=== PATIENT | female | born 1945 | race African-American/Black ===

== ENCOUNTER 2023-05-09 20:18 | Inpatient (IN) | payer MEDICARE ==
[~2023-05-09] VITALS: Ht 152.4 cm; Wt 77.1 kg
[2023-05-09] MEDS ORDERED: ONDANSETRON HCL/PF 4 MG/2 ML VIAL ONE (20:46)
[2023-05-09] MEDS ORDERED: ONDANSETRON HCL/PF 4 MG/2 ML VIAL IVP ONE (21:00)
[2023-05-09] MEDS ORDERED: IV NS 0.9% 1,000 ML BAG IV ONE (21:00)
[2023-05-09 21:19] LABS: BASOPHILS % (AUTO) 0.2 % (0.0-2.0); EOSINOPHILS # (AUTO) 0.1 K/uL (0.0-0.7); EOSINOPHILS % (AUTO) 1.2 % (0.0-6.0); HEMATOCRIT 35 % (33-45); HEMOGLOBIN 10.8 g/dL (11.5-14.8); LYMPHOCYTES # (AUTO) 0.5 K/uL (0.8-4.8); LYMPHOCYTES % (AUTO) 9.1 % (20.0-44.0); MEAN CORPUSCULAR HEMOGLOBIN 20 PG (26.0-33.0); MEAN CORPUSCULAR HGB CONC 31 g/dl (31.0-36.0); MEAN CORPUSCULAR VOLUME 65 fL (82-100); MONOCYTES # (AUTO) 0.2 K/uL (0.1-1.30); MONOCYTES % (AUTO) 2.8 % (2.0-12.0); NEUTROPHILS # (AUTO) 4.8 K/uL (1.8-8.9); NEUTROPHILS % (AUTO) 86.7 % (43.0-81.0); PLATELET COUNT (AUTO) 142 K/uL (150-450); RED BLOOD CELL COUNT(AUTO) 5.39 MIL/uL (4.0-5.2); RED CELL DISTRIBUTION WIDTH 15.9 % (11.5-15.0); WHITE BLOOD COUNT (AUTO) 5.5 K/uL (4.3-11.0)
[2023-05-09 21:28] LABS: CALCIUM, SERUM 9.6 mg/dL (8.5-10.1); CARBON DIOXIDE 22 mmol/L (21-32); CHLORIDE 101 mmol/L (98-107); CREATININE 1.2 mg/dL (0.6-1.3); GLUCOSE 99 mg/dL (74-106); POTASSIUM 3.4 mmol/L (3.5-5.1); SODIUM SERUM 135 mmol/L (136-145); UREA NITROGEN, BLOOD 19 mg/dL (7-18)
[2023-05-09 21:34] LABS: ALANINE AMINOTRANSFERASE 27 U/L (12-78); ALBUMIN 3.3 g/dL (3.4-5.0); ALKALINE PHOSPHATASE 61 U/L (46-116); ASPARTATE AMINOTRANSFERASE 22 U/L (15-37); BILIRUBIN,DIRECT 0.3 mg/dL (0.0-0.2); BILIRUBIN,TOTAL 0.6 mg/dL (0.2-1.0); TOTAL PROTEIN, SERUM 7.8 g/dL (6.4-8.2)
[2023-05-09 22:29] LABS: ANISOCYTOSIS 1+; BASOPHILS % (MANUAL) 0 % (0.0-2.0); EOSINOPHILS % (MANUAL) 0 % (0-4); LYMPHOCYTES % (MANUAL) 11 % (16-48); MONOCYTES % (MANUAL) 4 % (0-11.0); NEUTROPHILS % (MANUAL) 85 (42-76); PLATELET ESTIMATE ADEQUATE
[2023-05-09] MEDS ORDERED: ONDANSETRON HCL/PF 4 MG/2 ML VIAL IVP PRN (22:30)
[2023-05-09] MEDS ORDERED: Z GUARD REMEDY 4 OZ OINT TP PRN (22:30)
[2023-05-09] MEDS: POTASSIUM CL. PREMIX PERIPHER. 50 ML IV SCH ×2 (22:30→23:30)
[2023-05-09] MEDS ORDERED: MAGNESIUM HYDROXIDE 30 ML UDC PO PRN (22:30)
[2023-05-09] MEDS ORDERED: TEMAZEPAM 15 MG CAPSULE PO PRN (22:30)
[2023-05-09] MEDS ORDERED: MAG HYDROX/AL HYDROX/SIMETH 30 ML UDC PO PRN (22:30)
[2023-05-09 22:47] LABS: APPEARANCE,URINE CLOUDY (CLEAR); BILIRUBIN,URINE NEGATIVE (NEGATIVE); BLOOD, URINE 1+ Ery/uL (NEGATIVE); COLOR,URINE DARK YELLOW (YELLOW); KETONES,URINE 1+ mg/dL (NEGATIVE); LEUKOCYTE ESTERASE ,URINE 2+ (NEGATIVE); NITRITE, URINE POSITIVE (NEGATIVE); PROTEIN,URINE 2+ mg/dl (NEGATIVE); UGLUCOSE NEGATIVE (NEGATIVE)
[2023-05-09 22:52] LABS: ADD URINE CULTURE YES; BACTERIA,URINE Moderate /HPF (None Seen); SQUAMOUS EPITHELIAL CELL,UR Rare /HPF (None Seen); WBC,URINE 21-50 /HPF (0-3)
[2023-05-09] MEDS ORDERED: POTASSIUM CL. PREMIX PERIPHER. 100 ML ONE (22:52)
[2023-05-09] MEDS ORDERED: CEFTRIAXONE 1 G in IV D5W 50 ML IV SCH (23:30)
[2023-05-09] MEDS ORDERED: CEFEPIME 1 GM VIAL ONE (23:33)
[2023-05-09] MEDS: CEFEPIME 1 GM in IV D5W 50 ML IV SCH (23:45)
[2023-05-10] MEDS ORDERED: ACETAMINOPHEN 325 MG TABLET ONE (06:41)
[2023-05-10] MEDS: ACETAMINOPHEN 325 MG TABLET PO PRN ×3 (06:45→15:51)
[2023-05-10] MEDS ORDERED: IRBE150T28 PO (07:43)
[2023-05-10] MEDS ORDERED: LOSA100T31 PO (07:43)
[2023-05-10] MEDS ORDERED: FLUT1BLS IH (07:43)
[2023-05-10] MEDS ORDERED: AMLO10TA4 PO (07:43)
[2023-05-10] MEDS ORDERED: ACET-868 PO (07:43)
[2023-05-10] MEDS ORDERED: ATOR10TA PO (07:43)
[2023-05-10 09:00] VITALS: BP 104/63; TEMP 100.2; O2SAT 95
[2023-05-10] MEDS ORDERED: PANTOPRAZOLE 40 MG VIAL IV SCH (09:00)
[2023-05-10] MEDS: CEFEPIME 1 GM in IV D5W 50 ML IV SCH ×2 (09:07→21:12)
[2023-05-10 09:42] LABS: BASOPHILS % (AUTO) 0.1 % (0.0-2.0); EOSINOPHILS % (AUTO) 0.1 % (0.0-6.0); HEMATOCRIT 30 % (33-45); HEMOGLOBIN 9.3 g/dL (11.5-14.8); LYMPHOCYTES # (AUTO) 1.1 K/uL (0.8-4.8); LYMPHOCYTES % (AUTO) 9.8 % (20.0-44.0); MEAN CORPUSCULAR HEMOGLOBIN 20 PG (26.0-33.0); MEAN CORPUSCULAR HGB CONC 31 g/dl (31.0-36.0); MEAN CORPUSCULAR VOLUME 66 fL (82-100); MONOCYTES # (AUTO) 1.3 K/uL (0.1-1.30); MONOCYTES % (AUTO) 11.6 % (2.0-12.0); NEUTROPHILS # (AUTO) 9.1 K/uL (1.8-8.9); NEUTROPHILS % (AUTO) 78.4 % (43.0-81.0); PLATELET COUNT (AUTO) 128 K/uL (150-450); RED CELL DISTRIBUTION WIDTH 15.8 % (11.5-15.0); WHITE BLOOD COUNT (AUTO) 11.7 K/uL (4.3-11.0)
[2023-05-10 10:07] LABS: CALCIUM, SERUM 9.1 mg/dL (8.5-10.1); CARBON DIOXIDE 21 mmol/L (21-32); CHLORIDE 104 mmol/L (98-107); CREATININE 1.1 mg/dL (0.6-1.3); GLUCOSE 100 mg/dL (74-106); PHOSPHORUS 3.2 mg/dL (2.5-4.9); POTASSIUM 3.8 mmol/L (3.5-5.1); SODIUM SERUM 137 mmol/L (136-145); UREA NITROGEN, BLOOD 17 mg/dL (7-18)
[2023-05-10 10:18] LABS: CHOLESTEROL 100 mg/dL (<200); HDL CHOLESTEROL 41 mg/dL (40-60); LDL 39 mg/dL (0-99); THYROID STIMULATING HORMONE 2.622 uIU/mL (0.358-3.74); TRIGLYCERIDES 109 mg/dL (30-150)
[2023-05-10] MEDS: IV NS 0.9% 1,000 ML IV PRN (11:35)
[2023-05-10 16:00] VITALS: BP 117/67; TEMP 98.8; O2SAT 94
[2023-05-10 20:00] VITALS: BP 120/72; TEMP 98.8; O2SAT 96
[2023-05-10] MEDS: ATORVASTATIN 10 MG TABLET PO SCH (21:21)
[2023-05-10] MEDS: HYDROCODONE/APAP 5/325MG TABLET PO PRN (21:22)
[2023-05-11] MEDS: IV NS 0.9% 1,000 ML IV PRN ×2 (05:13→20:39)
[2023-05-11 07:18] LABS: BASOPHILS % (AUTO) 0.1 % (0.0-2.0); EOSINOPHILS % (AUTO) 0.5 % (0.0-6.0); HEMATOCRIT 28 % (33-45); HEMOGLOBIN 8.7 g/dL (11.5-14.8); LYMPHOCYTES # (AUTO) 1.1 K/uL (0.8-4.8); LYMPHOCYTES % (AUTO) 14.9 % (20.0-44.0); MEAN CORPUSCULAR HEMOGLOBIN 20 PG (26.0-33.0); MEAN CORPUSCULAR HGB CONC 32 g/dl (31.0-36.0); MEAN CORPUSCULAR VOLUME 65 fL (82-100); MONOCYTES # (AUTO) 1.2 K/uL (0.1-1.30); MONOCYTES % (AUTO) 15.3 % (2.0-12.0); NEUTROPHILS # (AUTO) 5.3 K/uL (1.8-8.9); NEUTROPHILS % (AUTO) 69.2 % (43.0-81.0); PLATELET COUNT (AUTO) 109 K/uL (150-450); RED BLOOD CELL COUNT(AUTO) 4.27 MIL/uL (4.0-5.2); RED CELL DISTRIBUTION WIDTH 15.4 % (11.5-15.0); WHITE BLOOD COUNT (AUTO) 7.7 K/uL (4.3-11.0)
[2023-05-11 07:52] LABS: CREATININE 0.9 mg/dL (0.6-1.3); PHOSPHORUS 2.6 mg/dL (2.5-4.9); POTASSIUM 3.5 mmol/L (3.5-5.1)
[2023-05-11 08:00] VITALS: BP 123/76; TEMP 99.6; O2SAT 92
[2023-05-11] MEDS: CEFEPIME 1 GM in IV D5W 50 ML IV SCH ×2 (09:11→21:02)
[2023-05-11] MEDS: FLUTICASONE/VILANTEROL 1 EACH BLST.W.DEV IH SCH (09:15)
[2023-05-11] MEDS: PANTOPRAZOLE 40 MG TABLET.DR PO SCH (09:15)
[2023-05-11 13:50] LABS: BAND % (MANUAL) 2 % (0.0-5.0); NEUTROPHILS % (MANUAL) 68 (42-76)
[2023-05-11 13:51] LABS: ANISOCYTOSIS 1+; EOSINOPHILS % (MANUAL) 0 % (0-4); HYPOCHROMASIA 1+; LYMPHOCYTES % (MANUAL) 17 % (16-48); MONOCYTES % (MANUAL) 13 % (0-11.0); OVALOCYTES 1+; PLATELET ESTIMATE DECREASED
[2023-05-11 16:00] VITALS: BP 129/80; TEMP 98.6; O2SAT 95
[2023-05-11] MEDS: HYDROCODONE/APAP 5/325MG TABLET PO PRN (17:14)
[2023-05-11 19:49] VITALS: O2SAT 93
[2023-05-11] MEDS: ALBUTEROL FS 2.5 MG/3 ML VIAL.NEB NEB SCH (19:49)
[2023-05-11] MEDS: IPRATROPIUM NEB FS 0.5 MG/2.5 ML AMPUL.NEB NEB SCH (19:49)
[2023-05-11 20:00] VITALS: BP 134/76; TEMP 98.1; O2SAT 95
[2023-05-11 20:04] VITALS: O2SAT 97
[2023-05-11] MEDS: ATORVASTATIN 10 MG TABLET PO SCH (21:56)
[2023-05-12] VITALS (9 sets, daily range): BP systolic 114–137; BP diastolic 67–80; TEMP 97.9–98.2; O2SAT 91–99
[2023-05-12] MEDS: HYDROCODONE/APAP 5/325MG TABLET PO PRN (00:35)
[2023-05-12 06:51] LABS: BASOPHILS % (AUTO) 0.1 % (0.0-2.0); EOSINOPHILS # (AUTO) 0.1 K/uL (0.0-0.7); EOSINOPHILS % (AUTO) 1.6 % (0.0-6.0); HEMATOCRIT 29 % (33-45); HEMOGLOBIN 9.2 g/dL (11.5-14.8); LYMPHOCYTES # (AUTO) 1.4 K/uL (0.8-4.8); LYMPHOCYTES % (AUTO) 22.2 % (20.0-44.0); MEAN CORPUSCULAR HEMOGLOBIN 20 PG (26.0-33.0); MEAN CORPUSCULAR HGB CONC 31 g/dl (31.0-36.0); MEAN CORPUSCULAR VOLUME 64 fL (82-100); MONOCYTES % (AUTO) 15.7 % (2.0-12.0); NEUTROPHILS # (AUTO) 3.9 K/uL (1.8-8.9); NEUTROPHILS % (AUTO) 60.4 % (43.0-81.0); PLATELET COUNT (AUTO) 131 K/uL (150-450); RED BLOOD CELL COUNT(AUTO) 4.56 MIL/uL (4.0-5.2); RED CELL DISTRIBUTION WIDTH 15.8 % (11.5-15.0); WHITE BLOOD COUNT (AUTO) 6.4 K/uL (4.3-11.0)
[2023-05-12 07:38] LABS: CALCIUM, SERUM 9.2 mg/dL (8.5-10.1); CREATININE 0.9 mg/dL (0.6-1.3); MAGNESIUM 2.2 mg/dL (1.8-2.4); PHOSPHORUS 3.2 mg/dL (2.5-4.9); POTASSIUM 3.5 mmol/L (3.5-5.1)
[2023-05-12] MEDS: IPRATROPIUM NEB FS 0.5 MG/2.5 ML AMPUL.NEB NEB SCH ×3 (08:01→20:17)
[2023-05-12] MEDS: ALBUTEROL FS 2.5 MG/3 ML VIAL.NEB NEB SCH ×3 (08:01→20:17)
[2023-05-12] MEDS: CEFEPIME 1 GM in IV D5W 50 ML IV SCH (08:29)
[2023-05-12] MEDS: FLUTICASONE/VILANTEROL 1 EACH BLST.W.DEV IH SCH (08:29)
[2023-05-12] MEDS: PANTOPRAZOLE 40 MG TABLET.DR PO SCH (08:29)
[2023-05-12] MEDS: LIDOCAINE 5% (PATCH) 1 EA PATCH TP SCH (12:02)
[2023-05-12] MEDS: ACETAMINOPHEN 325 MG TABLET PO PRN ×2 (15:55→22:09)
[2023-05-12] MEDS: GUAIFENESIN/D-METHORPHAN HB 5 ML UDC PO PRN (18:00)
[2023-05-12] MEDS: AMOXICILLIN TRIHYDRATE 250 MG CAPSULE PO SCH (21:46)
[2023-05-12] MEDS: ATORVASTATIN 10 MG TABLET PO SCH (21:46)
[2023-05-12] MEDS: IV NS 0.9% 1,000 ML IV PRN (21:51)
[2023-05-13] MEDS: AMOXICILLIN TRIHYDRATE 250 MG CAPSULE PO SCH ×2 (05:58→12:37)
[2023-05-13 06:51] LABS: BASOPHILS % (AUTO) 0.4 % (0.0-2.0); EOSINOPHILS # (AUTO) 0.2 K/uL (0.0-0.7); EOSINOPHILS % (AUTO) 2.8 % (0.0-6.0); HEMATOCRIT 29 % (33-45); HEMOGLOBIN 9.1 g/dL (11.5-14.8); LYMPHOCYTES # (AUTO) 1.1 K/uL (0.8-4.8); LYMPHOCYTES % (AUTO) 15.9 % (20.0-44.0); MEAN CORPUSCULAR HEMOGLOBIN 20 PG (26.0-33.0); MEAN CORPUSCULAR HGB CONC 32 g/dl (31.0-36.0); MEAN CORPUSCULAR VOLUME 64 fL (82-100); MONOCYTES % (AUTO) 14.6 % (2.0-12.0); NEUTROPHILS # (AUTO) 4.5 K/uL (1.8-8.9); NEUTROPHILS % (AUTO) 66.3 % (43.0-81.0); PLATELET COUNT (AUTO) 162 K/uL (150-450); RED BLOOD CELL COUNT(AUTO) 4.47 MIL/uL (4.0-5.2); RED CELL DISTRIBUTION WIDTH 15.5 % (11.5-15.0); WHITE BLOOD COUNT (AUTO) 6.8 K/uL (4.3-11.0)
[2023-05-13] MEDS: GUAIFENESIN/D-METHORPHAN HB 5 ML UDC PO PRN (06:55)
[2023-05-13] MEDS: ALBUTEROL FS 2.5 MG/3 ML VIAL.NEB NEB SCH (07:21)
[2023-05-13] MEDS: IPRATROPIUM NEB FS 0.5 MG/2.5 ML AMPUL.NEB NEB SCH (07:21)
[2023-05-13 07:22] VITALS: O2SAT 94
[2023-05-13 07:24] LABS: CALCIUM, SERUM 9.1 mg/dL (8.5-10.1); CREATININE 0.7 mg/dL (0.6-1.3); MAGNESIUM 2.1 mg/dL (1.8-2.4); POTASSIUM 3.5 mmol/L (3.5-5.1)
[2023-05-13 07:37] VITALS: O2SAT 98
[2023-05-13 08:30] VITALS: BP 131/82; TEMP 99; O2SAT 97
[2023-05-13] MEDS: PANTOPRAZOLE 40 MG TABLET.DR PO SCH (09:11)
[2023-05-13] MEDS: FLUTICASONE/VILANTEROL 1 EACH BLST.W.DEV IH SCH (09:11)
[2023-05-13] MEDS: ACETAMINOPHEN 325 MG TABLET PO PRN (09:15)
[2023-05-13] MEDS: LIDOCAINE 5% (PATCH) 1 EA PATCH TP SCH (12:37)
[2023-05-13] MEDS ORDERED: NITR100C6 PO (14:45)
[2023-05-13] MEDS ORDERED: ONDA4TAB11 PO (14:45)
[2023-05-13] MEDS ORDERED: LEVO750T46 PO (14:49)
== END 2023-05-13 17:46 | disposition home health service (06) | DRG 871 ==
LOC: ER 20:19 → TRANSITION 22:26 → MED 05-10 05:30
PROVIDERS: ADMIT Nurse Practitioner Acute Care; ATTEND Nurse Practitioner Family
DX: A41.9 Sepsis, unspecified organism (principal); J15.9 Unspecified bacterial pneumonia; E87.1 Hypo-osmolality and hyponatremia; N39.0 Urinary tract infection, site not specified; Z16.24 Resistance to multiple antibiotics; D50.9 Iron deficiency anemia, unspecified; E86.0 Dehydration; D53.9 Nutritional anemia, unspecified; E86.1 Hypovolemia; E87.6 Hypokalemia; I10 Essential (primary) hypertension; Z20.822 Contact with and (suspected) exposure to COVID-19; E78.5 Hyperlipidemia, unspecified; M25.551 Pain in right hip; B96.20 Unspecified Escherichia coli [E. coli] as the cause of diseases classified elsewhere; R11.2 Nausea with vomiting, unspecified
CPT/HCPCS: 36415; 71045-TC; 71250-TC; 73502; 80048-TC; 80061-TC; 80076-TC; 81001; 82728-TC; 83540-TC; 83735-TC; 84100-TC; 84443-TC; 84484-TC; 85025-TC; 87086-TC; 94799-TC; 97110-TC; 97116-TC; 97530-TC; A4223; A6403; C9113; G0378; J0692; J0696; J2405; J3480; J7030; J7060